=== PATIENT | male | born 1945 | race Caucasian/White ===

== ENCOUNTER 2017-01-26 17:36 | Emergency (ER) | payer OTHER, MEDICARE ==
[~2017-01-26] VITALS: Ht 175.3 cm; Wt 88.5 kg
[2017-01-26 19:07] LABS: ABSOLUTE BASOPHIL COUNT 0 /CUMM (0.0-0.2); ABSOLUTE EOSINOPHIL COUNT 0.2 /CUMM (0.0-0.7); ABSOLUTE GRANULOCYTE CT 3.2 /CUMM (1.4-6.5); ABSOLUTE LYMPH COUNT 1.4 /CUMM (1.2-3.4); ABSOLUTE MONOCYTE COUNT 0.5 /CUMM (0.10-0.60); BASOPHIL % 0.5 % (0.0-2.0); EOSINOPHIL % 3.1 % (0-5); GRANULOCYTE % 61.1 % (42.2-75.2); HEMATOCRIT 42.9 % (42-52); MEAN CORPUSCULAR HGB 32.8 PG (27.0-31.0); MEAN CORPUSCULAR HGB CONC 33.2 G/DL (33.0-37.0); MEAN PLATELET VOLUME 6.9 FL (7.4-10.4); PLATELET COUNT 245 /CUMM (130-400); RBC DISTRIBUTION WIDTH 14.7 % (11.5-14.5); RED BLOOD CELL CT 4.34 /CUMM (4.70-6.10); WHITE BLOOD CELL COUNT 5.3 /CUMM (4.8-10.8)
--- NOTE | 2017-01-26 19:31 | ED GENERAL ADULT ---
History of Present Illness General Chief Complaint: Dizziness Stated Complaint: DIZZINESS SINCE X1 DAY NOC/P OR SOB Source: patient Exam Limitations: no limitations Vital Signs & Intake/Output Vital Signs & Intake/Output Vital Signs Date Time Temp Pulse Resp B/P B/P Pulse O2 O2 Flow FiO2 Mean Ox Delivery Rate 01/26 2106 96.0 64 18 129/83 98 Room Air 01/26 1802 97.7 68 18 119/77 ED Intake and Output 01/27 0000 01/26 1200 Intake Total Output Total Balance Patient 195 lb Weight Allergies Coded Allergies: codeine (HALLUCINATE 01/26/17) Reconcile Medications Fluticasone Propionate (Flonase Allergy Relief) (Unknown Strength) SPRAY.SUSP (Unknown Dose) NASB DAILY ALLERGIES (Reported) Multivitamin (Multi-Day Vitamins) 1 EACH TABLET 1 TAB PO DAILY SUPPLEMENT ( Reported) [place]-3 Fatty Acids ([place]-3) (Unknown Strength) CAPSULE (Unknown Dose) PO DAILY SUPPLEMENT (Reported) Phenytoin (Dilantin) 100 MG CAPSULE 3 CAP PO QAM SEIZURES (Reported) Phenytoin (Dilantin) 100 MG CAPSULE 2 CAP PO QPM SEIZURES (Reported) Rosuvastatin Calcium (Crestor) 10 MG TABLET 0.5 TAB PO DAILY CHOLESTEROL ( Reported) Vit C/E/Zn/Coppr/Lutein/Zeaxan (Preservision Areds 2 Softgel) 250-200-40 CAPSULE 1 CAP PO BID SUPPLEMENT (Reported) Triage Note: PT STATES THAT HE HAS BEEN FEELING DIZZY SINCE YESTERDAY, STATES THAT IT STARTED WHEN HE WAS LAYING IN BED LAST PM. DIZZINESS HAS BEEN CONSTANT AND HAS SSOME NAUSEA. DENIES CP Triage Nurses Notes Reviewed? yes Onset: Gradual Duration: day(s): (1) Timing: no prior history Injury Environment: home Severity: moderate Severity Numbers: 6 HPI: Patient is a 71-year-old male with history of sinusitis presenting to the emergency Department chief complaint of lightheadedness admin going on for the past one day. He reports that he had a vertigo sensation yesterday where he felt like the room was spinning. Denies any nausea or vomiting. Denies any weakness. No confusion. Denies any facial droop. Denies chest pain palpitations or shortness of breath. He does report that his been using a lot Flonase over the past several days for sinus congestion. He's been using 6 sprays a day with near only supposed to use 2. He has also been taking "a lot" of Aleve. He's had a lot of sinus pressure and thought that this would help. No fevers or chills. No neck pain. Denies any headaches. Symptoms get worse with positional changes, when he gets up quickly. (JANET HOLLINS) Past History Travel History Traveled to [place] past 21 day No Medical History Any Pertinent Medical History? see below for history Neurological: seizure EENT: sinusitis Cardiovascular: hyperlipidemia Respiratory: NONE Gastrointestinal: NONE Hepatic: NONE Renal: NONE Musculoskeletal: NONE Psychiatric: NONE Endocrine: NONE Blood Disorders: NONE Cancer(s): NONE ELECTRODYNAMICIST/Reproductive: NONE Surgical History Surgical History: non-contributory Psychosocial History What is your primary language Togolese Tobacco Use: Never used ETOH Use: denies use Illicit Drug Use: denies illicit drug use Family History Hx Contributory? No (JANET HOLLINS) Review of Systems Review of Systems Constitutional: Reports: malaise. Comments Review of systems: See HPI, All other systems negative. Constitutional, no chills fever or weight loss HEENT: No visual changes no sore throat no congestion Cardiovascular: No chest pain ,palpitation , orthopnea or ankle swelling Skin, no jaundice no rashes Respiratory: No dyspnea cough sputum or hemoptysis GI: No nausea no vomiting : No dysuria No hematuria Muscle skeletal: no back pain, no neck pain, Neurologic: No numbness no confusion NO SANCHEZ Psych: No stress anxiety or depression,. Heme/endocrine: No bruising no bleeding no polyuria or polydipsia Immunology: No splenectomy or history of AIDS (JANET HOLLINS) Physical Exam Physical Exam General Appearance: well developed/nourished, no apparent distress, alert, awake , comfortable Comments: Well-developed well-nourished person in no acute distress HEENT: extraocular motion intact, no nystagmus. Pupils equally round and reactive to light and accommodation. Nose is atraumatic. External auditory canal and Tympanic membranes clear. Pharynx normal. No swelling or edema. Minimal tenderness to palpation of the maxillary sinuses. No septal hematoma noted. No rhinorrhea. Neck: Supple, no lymphadenopathy, normal range of motion without pain or tenderness Back: Nontender, no CVA tenderness. Cardiovascular: Regular rate and rhythms no murmurs rubs or gallops, normal JVP Respiratory: Chest nontender. No respiratory distress.breath sounds clear to auscultation bilaterally Extremity: No edema, no calf tenderness to palpation, normal and equal pulses. Neuro: Alert oriented x3, motor sensory normal, cranial nerves II through XII grossly intact. CEREBELLAR TESTING UNREMARKABLE. Able to perform rapid alternating movements and [id number]-ul-[id number] testing without difficulty. Steady gait. PATELLAR REFLEXES INTACT BILATERALLY. NEGATIVE PRONATOR DRIFT. Skin:VARICOSE VEIN ON RIGHT LOWER EXT, NON-TENDER. No appreciable rash on exposed skin, skin is warm and dry. Psych: Mood and affect is normal, memory and judgment is normal. Core Measures ACS in differential dx? Yes CVA/TIA Diagnosis: No Severe Sepsis Present: No Septic Shock Present: No (ZACH GALLARDO,JANET) Progress Differential Diagnoses I considered the following diagnoses in my evaluation of the patient: Orthostatic hypotension, electrolyte abnormality, anemia, dehydration, sinusitis , CVA with TIA, vertigo medication noncompliancE Plan of Care: Orders Procedure Date/time Status TROPONIN LEVEL 01/27 1804 Complete COMPREHENSIVE METABOLIC PANEL 01/27 1804 Complete CBC WITHOUT DIFFERENTIAL 01/27 1804 Complete EKG 01/27 1804 Active Laboratory Tests 01/26/17 1900: Anion Gap 10, Estimated GFR > 60, BUN/Creatinine Ratio 30.0 H, Glucose 92, Calcium 9.3, Total Bilirubin 0.3, AST 28, ALT 35, Alkaline Phosphatase 106, Troponin I < 0.01, Total Protein 7.5, Albumin 4.3, Globulin 3.2, Albumin/ Globulin Ratio 1.3, CBC w Diff NO MAN DIFF REQ, RBC 4.34 L, MCV 99.0 H, MCH 32.8 H, RDW 14.7 H, MPV 6.9 L, Gran % 61.1, Lymphocytes % 26.7, Monocytes % 8.6, Eosinophils % 3.1, Basophils % 0.5, Absolute Granulocytes 3.2, Absolute Lymphocytes 1.4, Absolute Monocytes 0.5, Absolute Eosinophils 0.2, Absolute Basophils 0, PUBS MCHC 33.2 Diagnostic Imaging: Viewed by Me: CT Scan. Discussed w/RAD: CT Scan. Radiology Impression: PATIENT: MELANIE NOONAN PRESENT AGE: 71 PATIENT ACCOUNT NO: [id number] : 47 LOCATION: [facility] ORDERING PHYSICIAN: JANET GALLARDO SERVICE DATE: 01/26/17 EXAM TYPE: CAT - CT HEAD WO IV CONTRAST EXAMINATION: CT HEAD WITHOUT CONTRAST CLINICAL INFORMATION: Dizziness. Lightheaded. COMPARISON: None. TECHNIQUE: Contiguous axial imaging was performed from the skull base to vertex without intravenous contrast. DLP: 648 mGy-cm. FINDINGS: There is no evidence of acute intracranial hemorrhage or territorial infarction. No abnormal mass effect or midline shift is seen. Nicole to white matter differentiation is well preserved. No extra-axial fluid collections are identified. No hydrocephalus. Proportional prominence of the ventricles and sulcal spaces is consistent with mild volume loss. There is no abnormal attenuation within the brain parenchyma. The osseous structures and soft tissues are normal. The mastoid air cells and visualized portions of the paranasal sinuses are well aerated. IMPRESSION: No acute intracranial pathology. DICTATED BY: GARY GALLAGHER MD DATE/TIME DICTATED:2014 PATTERNMAKER APPRENTICE METAL:DINORAH DATE/TIME TRANSCRIBED:01/26/172014 CONFIDENTIAL, DO NOT COPY WITHOUT APPROPRIATE AUTHORIZATION. <Electronically signed in Other Vendor System> SIGNED BY: GARY GALLAGHER MD 01/26/172019 Initial ED EKG: SINUS RHYTHM AT 62 BPM, BORDERLINE t ABNORMALITY IS AN ANTERIOR LEADS Comments: Patient is neurologically intact no focal deficits on exam walking with steady gait. Symptoms likely peripheral in nature. Could be related to chronic sinus issues. Patient concerned about CVA, he will go for CT scan. Blood work was unremarkable. Orthostatics are negative. He was advised to use Flonase as directed and not overuse it. Discussed with Dr. Suarez and he agrees with plan. (JANET HOLLINS) Departure Departure Time of Disposition: 2049 Disposition: HOME OR SELF CARE Condition: Stable Clinical Impression Primary Impression: Lightheadedness Referrals: ERIN LUI,CONNOR Muhammad (PCP/Family) Additional Instructions: Follow-up with your primary care physician call to make an appointment. Take [id number] medications as directed. Do not overuse Flonase or Advil. Try using daily allergy medication to help her sinuses. Return for worsening symptoms or concerns. Increase fluid intake. Departure Forms: Customer Survey General Discharge Information (JANET HOLLINS) PA/FOOD CHEMIST Co-Sign Statement Statement: ED Attending supervision documentation- [] I saw and evaluated the patient. I have also reviewed all the pertinent lab results and diagnostic results. I agree with the findings and the plan of care as documented in the PA's/FOOD CHEMIST's documentation. [x] I have reviewed the ED Record and agree with the PA's/FOOD CHEMIST's documentation. [] Additions or exceptions (if any) to the PAs/FOOD CHEMIST's note and plan are summarized below: [] (AVILA LUI,AEDLITA Cuellar) Critical Care Note Critical Care Note Critical Care Time: non-applicable (JANET HOLLINS)
[2017-01-26] MEDS ORDERED: DILANTIN100 M1 PO ×2 (19:38→19:39)
[2017-01-26] MEDS ORDERED: PRESERVISION A1 EAC1 PO (19:39)
[2017-01-26] MEDS ORDERED: CRESTOR10 M1 PO (19:39)
[2017-01-26] MEDS ORDERED: MULTI-DAY VITA1 EACH PO (19:40)
[2017-01-26] MEDS ORDERED: OMEGA-31000 M1 PO (19:40)
[2017-01-26] MEDS ORDERED: FLONASE ALLERG9.9 ML NASB (19:41)
--- NOTE | 2017-01-26 20:20 | CT SCAN REPORT ---
EXAMINATION: CT HEAD WITHOUT CONTRAST CLINICAL INFORMATION: Dizziness. Lightheaded. COMPARISON: None. TECHNIQUE: Contiguous axial imaging was performed from the skull base to vertex without intravenous contrast. DLP: 648 mGy-cm. FINDINGS: There is no evidence of acute intracranial hemorrhage or territorial infarction. No abnormal mass effect or midline shift is seen. Nicole to white matter differentiation is well preserved. No extra-axial fluid collections are identified. No hydrocephalus. Proportional prominence of the ventricles and sulcal spaces is consistent with mild volume loss. There is no abnormal attenuation within the brain parenchyma. The osseous structures and soft tissues are normal. The mastoid air cells and visualized portions of the paranasal sinuses are well aerated. IMPRESSION: No acute intracranial pathology.
[2017-01-26 21:06] VITALS: BP 129/83
== END 2017-01-26 21:08 ==
LOC: ERH 17:36
PROVIDERS: Emergency Medicine
DX: R42 Dizziness and giddiness (principal); R56.9 Unspecified convulsions
CPT/HCPCS: 93005; 93010